=== PATIENT | male | born 1980 | race Two or more races ===

== ENCOUNTER 2019-05-15 15:25 | Emergency (ER) | payer MEDICAID ==
[~2019-05-15] VITALS: Ht 177.8 cm; Wt 80.7 kg
[2019-05-15 15:30] VITALS: BP 119/84
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
[2019-05-15] MEDS ORDERED: Tetanus/Diptheria/Pertussis IM ONE (15:45)
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
--- NOTE | 2019-05-15 16:04 | NUR ---
ED Nurse Note: patient unable to provide urine at this time.
[2019-05-15 16:50] LABS: APPEARANCE,URINE CLEAR; BILIRUBIN, URINE NEGATIVE (NEGATIVE); GLUCOSE, URINE (UA) NEGATIVE (NEGATIVE); KETONES,URINE 1+ (NEGATIVE); LEUKOCYTE ESTERASE ,URINE NEGATIVE (NEGATIVE); NITRITE,URINE NEGATIVE (NEGATIVE); PH,URINE 5 (4.5-8.0); PROTEIN,URINE 2+ (NEGATIVE); UROBILINOGEN,URINE 4 MG/DL (0.0-1.0)
[2019-05-15 16:56] LABS: COLOR,URINE YELLOW
[2019-05-15] MEDS ORDERED: Isovue-300 100ml vial INJ PRN (17:45)
--- NOTE | 2019-05-15 17:55 | NUR ---
ED Nurse Note: Iv started on patients left forearm 20 gauge. blood sent down to lab
[2019-05-15 18:00] VITALS: BP 103/64
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
[2019-05-15 18:16] LABS: ANION GAP 6 mmol/L (5-15); BASOPHILS % (AUTO) 1.2 % (0.0-2.0); BLOOD UREA NITROGEN 12 mg/dL (7-18); CALCIUM 8.2 MG/DL (8.5-10.1); CARBON DIOXIDE 27 MMOL/L (21-32); CHLORIDE 109 MMOL/L (98-107); CREATININE 0.7 MG/DL (0.55-1.30); EOSINOPHILS % (AUTO) 2.9 % (0.0-3.0); HEMATOCRIT 39.8 % (42.0-52.0); HEMOGLOBIN 14.3 G/DL (14.2-18.0); MEAN CORPUSCULAR VOLUME 87 FL (80-99); MONOCYTES % (AUTO) 8.8 % (1.0-10.0); PLATELET COUNT 234 K/UL (150-450); POTASSIUM 3.8 MMOL/L (3.5-5.1); RED BLOOD COUNT 4.58 M/UL (4.70-6.10); RED CELL DISTRIBUTION WIDTH 10.9 % (11.6-14.8); SODIUM 142 MMOL/L (136-145); WHITE BLOOD COUNT 8.4 K/UL (4.8-10.8)
[2019-05-15 18:21] LABS: ALANINE AMINOTRANSFERASE 29 U/L (12-78); ALBUMIN 3.4 G/DL (3.4-5.0); ALKALINE PHOSPHATASE 84 U/L (46-116); ASPARTATE AMINO TRANSFERASE 17 U/L (15-37); BILIRUBIN,TOTAL 0.6 MG/DL (0.2-1.0)
--- NOTE | 2019-05-15 19:18 | NUR ---
HAND-OFF: Report given to CHERYL Tobin.
--- NOTE | 2019-05-15 19:35 | NUR ---
ED Nurse Note: Pt went to CT scan.
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
[2019-05-15] MEDS ORDERED: ACETAMINOPHEN325 M1 ORAL (20:27)
[2019-05-15 20:39] VITALS: BP 108/64
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
[2019-05-15 20:41] VITALS: BP 108/64
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
== END 2019-05-15 20:41 | disposition home or self-care (01) ==
LOC: EDBD 15:25 → EMR 15:57
DX: S02.2XXA Fracture of nasal bones, initial encounter for closed fracture (principal); E04.1 Nontoxic single thyroid nodule; M54.5 Low back pain; M54.2 Cervicalgia; N28.1 Cyst of kidney, acquired; K76.9 Liver disease, unspecified; Z23 Encounter for immunization; Y04.2XXA Assault by strike against or bumped into by another person, initial encounter; Y92.9 Unspecified place or not applicable
CPT/HCPCS: 36415; 70450; 70486; 71260; 72020; 72125; 74177; 80053; 81003; 85025; 90471; 90715; Q9967; Z7502; 99284